=== PATIENT | male | born 1950 | race Caucasian/White ===

== ENCOUNTER → 2021-05-11 12:27 | Outpatient (CLI) | payer MEDICARE, OTHER, SELFPAY ==
--- NOTE | ~2021-05-11 | XR_ITS ---
EXAMINATION: XR knee LT 2V EXAM DATE: 05/11/2021 12:48 INDICATION: M25.562 - Pain in left knee. TECHNIQUE: Frontal and lateral projections of the left knee. There is no prior study for comparison . FINDINGS: There is mild tricompartmental primary osteoarthritis. Moderate-sized suprapatellar, mild infrapatellar enthesopathy. There may be mild edema in Hoffa's fat pad and anterior to the patellar t endon. Small joint effusion. Prominent tibial tuberosity spine, chronic. There are no acute fractures identified. No radiopaque foreign bodies identified. IMPRESSION: 1. Small joint effusion. 2. Mild anterior edema. 3. Mild degenerative changes. Reviewed, dictated and finalized at location B.
== END ==
PROVIDERS: PCP Family Medicine; Visit Provider Family Medicine
DX: M25.562 Pain in left knee (principal); M25.462 Effusion, left knee; M79.89 Other specified soft tissue disorders
CPT/HCPCS: 73560

== ENCOUNTER 2021-10-14 06:45 | Outpatient (CLI) | payer MEDICARE, OTHER, SELFPAY ==
[2021-10-14 08:03] LABS: Alanine Aminotransferase 18 U/L (4-50); Albumin Level 4.1 g/dL (3.5-5.1); Alkaline Phosphatase 70 U/L (38-126); Anion Gap 8 mmol/L (8-16); Aspartate Amino Transferase 25 U/L (17-59); Bilirubin,Total 0.8 mg/dL (0.2-1.3); Blood Urea Nitrogen 13 mg/dL (9-20); Calcium 8.7 mg/dL (8.4-10.2); Carbon Dioxide 29 mmol/L (22-30); Chloride 100 mmol/L (98-107); Cholesterol 183 mg/dL (0-200); Estimated Glomerular Filt Rate > 60; Glucose 128 mg/dL (65-110); HDL Direct 38 mg/dL; Potassium 3.8 mmol/L (3.4-5.0); Sodium 137 mmol/L (137-145); Triglycerides 135 mg/dL (<150)
[2021-10-14 08:14] LABS: LDL Cholesterol Direct 101 mg/dL
[2021-10-14 12:15] LABS: Hemoglobin A1C 6.1 % (<5.7)
== END 2021-10-14 06:46 | disposition home or self-care (01) ==
LOC: ANHLAB 06:50
PROVIDERS: PCP Family Medicine; Visit Provider Family Medicine
DX: E78.5 Hyperlipidemia, unspecified (principal); I10 Essential (primary) hypertension; R73.01 Impaired fasting glucose
CPT/HCPCS: 36415; 80053; 80061; 83036

== ENCOUNTER 2022-04-27 08:03 | Outpatient (CLI) | payer MEDICARE, OTHER, SELFPAY ==
[2022-04-27 08:48] LABS: Add Urine Microscopic? NO; Appearance Urine Clear (Clear); Bilirubin Urine Negative (Negative); Blood Urine Negative (Negative); Color Urine Yellow (Yellow); Glucose Urine UA Negative (Negative); Ketones Urine Negative (Negative); Leukocyte Esterase Ur Negative LEU/UL (NEGATIVE); Nitrate Urine Negative (Negative); Protein Urine Negative (Negative); Urobilinogen Urine Negative mg/dL (<2.0)
[2022-04-27 08:55] LABS: Alanine Aminotransferase 25 U/L (6-50); Albumin Level 4.5 g/dL (3.5-5.1); Alkaline Phosphatase 75 U/L (38-126); Anion Gap 9 mmol/L (8-16); Aspartate Amino Transferase 26 U/L (17-59); Bilirubin,Total 0.6 mg/dL (0.2-1.3); Blood Urea Nitrogen 12 mg/dL (9-20); Calcium 8.7 mg/dL (8.4-10.2); Carbon Dioxide 29 mmol/L (22-30); Chloride 100 mmol/L (98-107); Cholesterol 186 mg/dL (0-200); Estimated Glomerular Filt Rate > 60; Glucose 140 mg/dL (65-110); HDL Direct 42 mg/dL; Potassium 3.6 mmol/L (3.4-5.0); Sodium 138 mmol/L (137-145); Triglycerides 158 mg/dL (<150)
[2022-04-27 09:01] LABS: Basophils Percent Auto 0.3 % (0.2-1.2); Eosinophils Absolute Auto 0.3 K/mm3 (0-0.3); Eosinophils Percent Auto 5.1 % (0-4.4); Hematocrit 43.8 % (42.0-52.0); Hemoglobin 14.8 g/dL (14.0-18.0); Immature Granulocyte Absolute 0.02 K/mm3 (0.00-0.031); Immature Granulocyte Percent A 0.3 % (0-0.5); Lymphocytes Absolute Auto 1.95 K/mm3 (0.9-3.2); Mean Corpuscular HGB Conc 33.8 g/dl (32-36); Mean Corpuscular Hemoglobin 30.8 pg (26-34); Mean Corpuscular Volume 91.3 fl (80-100); Mean Platelet Volume 10.6 fl (7.4-10.4); Monocytes Absolute Auto 0.6 K/mm3 (0.1-0.6); Monocytes Percent Auto 8.9 % (2.6-8.5); Neutrophils Absolute Auto 3.8 K/mm3 (1.3-6.7); Neutrophils Percent Auto 56.4 % (45.5-73.1); Platelet Count Result 282 k/mm3 (150-375); Red Cell Distribution Width 12.9 % (11.5-14.5); White Blood Count 6.7 K/mm3 (4.5-10.0)
[2022-04-27 09:06] LABS: LDL Cholesterol Direct 108 mg/dL
[2022-04-27 09:22] LABS: Hemoglobin A1C 6.7 % (<5.7)
[2022-04-27 09:25] LABS: Prostate Specific Antigen 0.9 ng/mL (< OR = 4.0)
== END 2022-04-27 08:04 | disposition home or self-care (01) ==
LOC: ANHLAB 08:05
PROVIDERS: PCP Family Medicine; Visit Provider Nurse Practitioner Family
DX: Z12.5 Encounter for screening for malignant neoplasm of prostate (principal); I48.91 Unspecified atrial fibrillation; Z00.00 Encounter for general adult medical examination without abnormal findings; I10 Essential (primary) hypertension; E78.5 Hyperlipidemia, unspecified; R73.01 Impaired fasting glucose; E78.00 Pure hypercholesterolemia, unspecified
CPT/HCPCS: 36415; 80053; 80061; 81003; 83036; 84153; 84443; 85025; G0103

== ENCOUNTER 2022-10-27 06:44 | Outpatient (CLI) | payer MEDICARE, OTHER, SELFPAY ==
[2022-10-27 07:54] LABS: Alanine Aminotransferase 21 U/L (6-50); Albumin Level 4.5 g/dL (3.5-5.1); Alkaline Phosphatase 71 U/L (38-126); Anion Gap 6 mmol/L (8-16); Aspartate Amino Transferase 24 U/L (17-59); Bilirubin,Total 0.9 mg/dL (0.2-1.3); Blood Urea Nitrogen 13 mg/dL (9-20); Calcium 8.7 mg/dL (8.4-10.2); Carbon Dioxide 29 mmol/L (22-30); Chloride 102 mmol/L (98-107); Estimated Glomerular Filt Rate > 60; Glucose 139 mg/dL (65-110); Potassium 3.7 mmol/L (3.4-5.0); Sodium 137 mmol/L (137-145)
[2022-10-27 08:14] LABS: Hemoglobin A1C 6.4 % (<5.7)
== END 2022-10-27 06:45 | disposition home or self-care (01) ==
PROVIDERS: PCP Family Medicine; Visit Provider Family Medicine
DX: E11.9 Type 2 diabetes mellitus without complications (principal)
CPT/HCPCS: 36415; 80053; 83036

== ENCOUNTER 2023-05-04 06:46 | Outpatient (CLI) | payer MEDICARE, OTHER, SELFPAY ==
[2023-05-04 07:48] LABS: Hematocrit 46.9 % (42.0-52.0); Hemoglobin 15.7 g/dL (14.0-18.0); Mean Corpuscular HGB Conc 33.5 g/dl (32-36); Mean Corpuscular Hemoglobin 30.5 pg (26-34); Mean Corpuscular Volume 91.2 fl (80-100); Mean Platelet Volume 10.5 fl (7.4-10.4); Platelet Count Result 296 k/mm3 (150-375); Red Blood Count 5.14 M/mm3 (4.6-6.20); Red Cell Distribution Width 12.9 % (11.5-14.5); White Blood Count 8.1 K/mm3 (4.5-10.0)
[2023-05-04 07:50] LABS: Appearance Urine Clear (Clear); Bilirubin Urine Negative (Negative); Blood Urine Negative (Negative); Color Urine Yellow (Yellow); Glucose Urine UA Negative (Negative); Ketones Urine Negative (Negative); Leukocyte Esterase Ur Negative LEU/UL (NEGATIVE); Nitrate Urine Negative (Negative); Protein Urine Negative (Negative); Specific Grav Ur 1.012 (1.001-1.035); Urobilinogen Urine 0.2 mg/dL (<2.0)
[2023-05-04 07:59] LABS: Alanine Aminotransferase 25 U/L (6-50); Albumin Level 4.4 g/dL (3.5-5.1); Alkaline Phosphatase 60 U/L (38-126); Anion Gap 8 mmol/L (8-16); Aspartate Amino Transferase 25 U/L (17-59); Bilirubin,Total 0.9 mg/dL (0.2-1.3); Blood Urea Nitrogen 17 mg/dL (9-20); Calcium 8.9 mg/dL (8.4-10.2); Carbon Dioxide 29 mmol/L (22-30); Chloride 100 mmol/L (98-107); Cholesterol 177 mg/dL (0-200); Estimated Glomerular Filt Rate > 60; Glucose 147 mg/dL (65-110); HDL Direct 45 mg/dL; Potassium 3.7 mmol/L (3.4-5.0); Sodium 137 mmol/L (137-145); Triglycerides 135 mg/dL (<150)
[2023-05-04 08:10] LABS: Add Urine Microscopic? NO; Hemoglobin A1C 6.5 % (<5.7)
[2023-05-04 08:11] LABS: LDL Cholesterol Direct 99 mg/dL
[2023-05-04 08:13] LABS: Creatinine Urine 131.1 mg/dL
[2023-05-04 08:17] LABS: MALB Creatinine Ratio 10.7 mg/g (0-30)
[2023-05-04 08:30] LABS: Prostate Specific Antigen 0.9 ng/mL (< OR = 4.0)
== END 2023-05-04 06:47 | disposition home or self-care (01) ==
PROVIDERS: PCP Family Medicine; Visit Provider Family Medicine
DX: E11.9 Type 2 diabetes mellitus without complications (principal); E78.5 Hyperlipidemia, unspecified; I10 Essential (primary) hypertension; R35.1 Nocturia; I48.91 Unspecified atrial fibrillation; E66.9 Obesity, unspecified; L71.9 Rosacea, unspecified
CPT/HCPCS: 36415; 80053; 80061; 81003; 82043; 83036; 84153; 84443; 85027

== ENCOUNTER 2023-11-21 06:51 | Outpatient (CLI) | payer MEDICARE, OTHER, SELFPAY ==
[2023-11-21 08:00] LABS: Alanine Aminotransferase 18 U/L (6-50); Albumin Level 4.2 g/dL (3.5-5.1); Alkaline Phosphatase 64 U/L (38-126); Anion Gap 6 mmol/L (4-12); Aspartate Amino Transferase 22 U/L (17-59); Bilirubin,Total 0.8 mg/dL (0.2-1.3); Blood Urea Nitrogen 14 mg/dL (9-20); Calcium 8.9 mg/dL (8.4-10.2); Carbon Dioxide 29 mmol/L (22-30); Chloride 102 mmol/L (98-107); Estimated Glomerular Filt Rate > 60; Glucose 143 mg/dL (65-110); Potassium 3.6 mmol/L (3.4-5.0); Sodium 137 mmol/L (137-145)
[2023-11-21 08:52] LABS: Hemoglobin A1C 6.7 % (<5.7)
== END 2023-11-21 06:52 | disposition home or self-care (01) ==
PROVIDERS: PCP Family Medicine; Visit Provider Physician Assistant
DX: E11.9 Type 2 diabetes mellitus without complications (principal); I10 Essential (primary) hypertension
CPT/HCPCS: 36415; 80053; 83036

== ENCOUNTER 2024-01-13 08:19 | Outpatient (CLI) | payer MEDICARE, OTHER, SELFPAY ==
--- NOTE | ~2024-01-13 | XR_ITS ---
EXAMINATION: XR elbow RT min 3V DATE: 01/13/2024 08:41 INDICATION: Right elbow pain TECHNIQUE: Anteroposterior, two oblique and lateral views of the right elbow were obtained. COMPARISON: None. FINDINGS: No acute fracture. Chronic excision of the radial head. There is severe osteoarthritis at the ulnotro chlear articulation. There are also irregular cortical margins at the radial and humeral sides of the radiocapitellar pseudoarticulation. Likely reactive small right joint effusion with displacement of the anterior but not the posterior fat pad. Soft tissues are otherwise unremarkable. IMPRESSION: 1. 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 2. Likely reactive small right elbow joint effusion. No acute osseous abnormality. Reviewed, dictated and finalized at location B. IMPRESSION: 1. 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 2. Likely reactive small right elbow joint effusion. No acute osseous abnormali ty.
== END 2024-01-13 08:20 ==
PROVIDERS: PCP Family Medicine; Visit Provider Family Medicine
DX: M25.521 Pain in right elbow (principal); M19.021 Primary osteoarthritis, right elbow; M25.421 Effusion, right elbow
CPT/HCPCS: 73080

== ENCOUNTER 2024-05-14 07:03 | Outpatient (CLI) | payer MEDICARE, OTHER, SELFPAY ==
[2024-05-14 07:48] LABS: Alanine Aminotransferase 20 U/L (6-50); Albumin Level 4.2 g/dL (3.5-5.1); Alkaline Phosphatase 69 U/L (38-126); Anion Gap 9 mmol/L (4-12); Aspartate Amino Transferase 20 U/L (17-59); Bilirubin,Total 0.7 mg/dL (0.2-1.3); Blood Urea Nitrogen 13 mg/dL (9-20); Calcium 8.6 mg/dL (8.4-10.2); Carbon Dioxide 28 mmol/L (22-30); Chloride 101 mmol/L (98-107); Cholesterol 159 mg/dL (0-200); Estimated Glomerular Filt Rate > 60; Glucose 156 mg/dL (65-110); HDL Direct 42 mg/dL; Potassium 3.6 mmol/L (3.4-5.0); Sodium 138 mmol/L (137-145); Triglycerides 106 mg/dL (<150)
[2024-05-14 07:55] LABS: Add Urine Microscopic? NO; Appearance Urine Clear (Clear); Bilirubin Urine Negative (Negative); Blood Urine Negative (Negative); Color Urine Yellow (Yellow); Glucose Urine UA Negative (Negative); Ketones Urine Negative (Negative); Leukocyte Esterase Ur Negative LEU/UL (Negative); Nitrate Urine Negative (Negative); Protein Urine Negative (Negative); Specific Grav Ur 1.013 (1.001-1.035); Urobilinogen Urine 0.2 mg/dL (<2.0)
[2024-05-14 07:59] LABS: LDL Cholesterol Direct 83 mg/dL
[2024-05-14 08:09] LABS: Hematocrit 45.1 % (42.0-52.0); Hemoglobin 15.4 g/dL (14.0-18.0); Mean Corpuscular HGB Conc 34.1 g/dl (32-36); Mean Corpuscular Hemoglobin 30.8 pg (26-34); Mean Corpuscular Volume 90.2 fl (80-100); Mean Platelet Volume 10.6 fl (7.4-10.4); Platelet Count Result 242 k/mm3 (150-375); Red Cell Distribution Width 12.7 % (11.5-14.5); White Blood Count 6.3 K/mm3 (4.5-10.0)
[2024-05-14 09:23] LABS: Creatinine Urine 118.3 mg/dL
[2024-05-14 09:28] LABS: MALB Creatinine Ratio 8.6 mg/g (0-30); Microalbumin Urine Random 10.2 mg/L (0-16.7)
== END 2024-05-14 07:04 | disposition home or self-care (01) ==
PROVIDERS: PCP Family Medicine; Visit Provider Family Medicine
DX: E78.5 Hyperlipidemia, unspecified (principal); E11.9 Type 2 diabetes mellitus without complications; L71.9 Rosacea, unspecified; I10 Essential (primary) hypertension; R35.1 Nocturia; N40.1 Benign prostatic hyperplasia with lower urinary tract symptoms; N13.8 Other obstructive and reflux uropathy; E66.9 Obesity, unspecified
CPT/HCPCS: 36415; 80053; 80061; 81003; 82043; 83036; 84153; 84443; 85027

== ENCOUNTER → 2024-05-17 13:49 | Outpatient (REF) | payer MEDICARE, OTHER, SELFPAY | LOC: ANHLAB 13:49 | PROVIDERS: PCP Family Medicine; Visit Provider Plastic Surgery | DX: C44.319 Basal cell carcinoma of skin of other parts of face (principal) | CPT/HCPCS: 88305 ==

== ENCOUNTER 2024-08-15 14:30 | Outpatient (RCR) | payer MEDICARE, OTHER, SELFPAY ==
[2024-06-19 13:20] VITALS: BMI 29.5
== END 2024-09-03 13:26 | disposition home or self-care (01) ==
LOC: ANHDMC 14:30
PROVIDERS: PCP Family Medicine; Visit Provider Family Medicine
DX: E11.65 Type 2 diabetes mellitus with hyperglycemia (principal); Z71.3 Dietary counseling and surveillance
CPT/HCPCS: 97802; G0108; G0109

== ENCOUNTER 2024-11-12 06:43 | Outpatient (CLI) | payer MEDICARE, OTHER, SELFPAY ==
--- OUTSIDE RECORDS SUMMARY | 2024-11-12 06:46 | XMS_ITS | Clinical Summary ---
Author Organization [facility] Address [address] [place] [id number] Care Team Providers Care Senior It Architect Name Role Phone Unavailable Primary Care Provider Unavailabl e Social History Tobacco Use Types Packs/Day Years Used Date Smoking Tobacco: Never Assessed Sex and Gender Information Value Date Recorded Sex Assigned at Not on file Legal Sex Male 5:10 PM CDT Gender Identity Not on file Sexual Orientation Not on file Last Filed Vital Signs Vital Sign Reading Time Taken Comments Blood Pressure 124/72 02/01/2017 8:38 AM CDT Pulse - - Temperature - - Respiratory Rate - - Oxygen Saturation - - Inhaled Oxygen Concentration - - Weight 99.3 kg (219 lb) 02/01/2017 8:38 AM CDT Height 182.9 cm (6') 02/01/2017 8:38 AM CDT Body Mass Index 29.7 02/01/2017 8:38 AM CDT Plan of Treatment Health Maintenance Due Date Last Done Comments Colorectal Cancer Screening Colonoscopy (10 Years) 1949 Hepatitis C 1967 DTaP, Tdap and Td Vaccines ( 1 - Tdap) 1968 Pneumococcal Vaccine: 50+ Ye ars (1 of 1 - PCV) 1999 Zoster Vaccines (1 of 2) 1999 COVID-19 Vaccine ( - 2023-2 5 season) 2024 RSV Immunization or 60+ Years (1 - 1-dose 75+ series) 2024 Meningococcal B Vaccine Aged Out No l onger eligible based on patient's age to complete this topic Meningococcal Vaccine Aged Out No minh deandre eligible based on patient's age to complete this topic RSV Immunizations Under 20 Months Aged Out No longer eligible based on patient's age to complete this topic
--- OUTSIDE RECORDS SUMMARY | 2024-11-12 06:46 | XMS_ITS | Clinical Summary ---
Author Organization [facility] Address [address] [place] [id number] Care Team Providers Care Ampoule Filler And Sealer Name Role Phone Patrice Naidu MD Primary Care Provider Allergies Active Allergy Reactions Criticality Noted Date Comments Diltiazem Other (See comments) Low 05/07/2019 Sensitivity - lowers BP too much. Losartan Angioedema High 11/09/2021 Tounge swelling Penicillins Unknown 09/28/2018 Medications finasteride (PROSCAR) 5 mg tablet Take 1 tablet (5 mg total) by mouth daily 9 Active pravastatin (PRAVACHOL) 20 mg tablet Take 1 tablet (20 mg total) by mouth daily 9 Active multivit-min/FA/ lycopen/lutein (CENTRUM SILVER MEN ORAL) Take by mouth Active desoximetasone 0.25 % spray,non-aeroso l Apply topically Active pimecrolimus (ELIDEL) 1 % cream Apply topically 2 (two) times a day Active indomethacin (INDOCIN) 50 mg capsule Take 1 capsule (50 mg total) by mouth 2 (two) times a day with meals prn Active amLODIPine (NORVASC) 5 mg tablet Take 1 tablet (5 mg total) by mouth daily 30 tablet [address] (PROTONIX) 40 mg EC tablet 4 Active Xarelto 20 mg tabletIndication s:atrial fibrillation Take 1 tablet (20 mg total) by mouth daily 90 tablet 3 5 Active metoprolol tartrate (LOPRESSOR) 25 mg immediate release tablet Take 0.5 tablets (12.5 mg total) by mouth 2 (two) times a day 90 tablet 3 5 Active metoprolol tartrate (LOPRESSOR) 25 mg immediate release tablet Take 0.5 tablets (12.5 mg total) by mouth 2 (two) times a day 90 tablet 5 10/16/19 25 Discontin ued(Reord er) Active Problems Problem Noted Date Diagnosed Date Essential hypertension 09/28/2018 Dyslipidemia 09/28/2018 Paroxysmal atrial fibrillation 09/28/2018 BPH (benign prostatic hyperplasia) 09/28/2018 Diastolic dysfunction without heart failure 09/15 Surgical History Surgery Date Site/Laterality Comments BASAL CELL CARCINOMA EXCISION LIPOMA RESECTION Medical History Medical History Date Comments Hypertension Hyperlipidemia Cancer (HCC) Gout Family History Medical History Relation Name Comments Heart attack Father Naresh Mejia Heart disease Mother Sandy Mejia Hypertension Mother Sandy Mejia Relation Name Status Comments Father Naresh Mejia (Age 89) Mother Sandy Mejia (Age 89) Social History Tobacco Use Types Packs/Day Years Used Date Smoking Tobacco: Never Smokeless Tobacco: Never Tobacco Cessation:Counseling Given: Not Answered Alcohol Use Standard Drinks/Week Comments Not Currently 0 (1 standard drink = 0.6 oz pur e alcohol) Sex and Gender Information Value Date Recorded Sex Assigned at Not on file Legal Sex Male 9:13 AM CHEMIST WATER PURIFICATION Gender Identity Not on file Sexual Orientation Not on file Obstetrics History Last Filed Vital Signs Vital Sign Reading Time Taken Comments Blood Pressure 110/72 05/21/2024 7:52 AM CHEMIST WATER PURIFICATION Pulse 71 05/21/2024 7:52 AM CHEMIST WATER PURIFICATION Temperature - - Respiratory Rate 18 05/05/2020 8:01 AM CDT Oxygen Saturation 96% 05/21/2024 7:52 AM CHEMIST WATER PURIFICATION Inhaled Oxygen Concentration - - Weight 99.9 kg (220 lb 4.8 oz) 05/21/2024 7:52 A M CHEMIST WATER PURIFICATION Height 182.9 cm (6') 05/21/2024 7:52 AM CHEMIST WATER PURIFICATION Body Mass Index 29.88 05/21/2024 7:52 AM CHEMIST WATER PURIFICATION Plan of Treatment Health Maintenance Due Date Last Done Comments Colon Cancer Screening-Colonoscopy 1949 Depression Screening 1949 Fall Risk Assessment 1949 Hepatitis C Screening 1949 Hepatitis B Screening 1967 Pneumococcal vaccine 65+ (1 of 1 - PCV) 1999 Zoster Vaccine (1 of 2) 1999 DTaP/Tdap/Td Vaccine (1 - Tdap) 03/05/2009 9 Well Visit 65+ 2014 Influenza Vaccine (#1) 2024 Insurance MEDICARE [employer] MEDICARE FOR LIFE Care Teams Ampoule Filler And Sealer Relationship Specialty Start Date End Date Patrice Naidu MD [address] [facility] [address] [place] [address] PCP - General Family Medicine 09/19/18
--- OUTSIDE RECORDS SUMMARY | 2024-11-12 06:46 | XMS_ITS | Referral Summary ---
Author Organization [facility] Address [address] [place] [id number] Care Team Providers Care Medical Imaging Tech Name Role Phone Patrice Naidu MD Primary [...] 09/28/2018 Diastolic dysfunction without heart failure 09/15 Social History Tobacco Use Types Packs/Day Years Used Date Smoking Tobacco: Never Smokeless Tobacco: Never Tobacco Cessation:Counseling Given: Not Answered Alcohol Use Standard Drinks/Week Comments Not Currently 0 (1 standard drink = 0.6 oz pur e alcohol) Sex and Gender Information Value Date Recorded Sex Assigned at Not on file Legal Sex Male 9:13 AM DOG LICENSE OFFICER SUPERVISOR Gender Identity Not on file Sexual Orientation Not on file Last Filed Vital Signs Vital Sign Reading Time Taken Comments Blood Pressure 110/72 05/21/2024 7:52 AM DOG LICENSE OFFICER SUPERVISOR Pulse 71 05/21/2024 7:52 AM DOG LICENSE OFFICER SUPERVISOR Temperature - - Respiratory Rate 18 05/05/2020 8:01 AM CDT Oxygen Saturation 96% 05/21/2024 7:52 AM DOG LICENSE OFFICER SUPERVISOR Inhaled Oxygen Concentration - - Weight 99.9 kg (220 lb 4.8 oz) 05/21/2024 7:52 A M DOG LICENSE OFFICER SUPERVISOR Height 182.9 cm (6') 05/21/2024 7:52 AM DOG LICENSE OFFICER SUPERVISOR Body Mass Index 29.88 05/21/2024 7:52 AM DOG LICENSE OFFICER SUPERVISOR Plan of Treatment Not on file Insurance [place] [address] MEDICARE FOR LIFE Care Teams Medical Imaging Tech Relationship Specialty Start Date End Date Patrice Naidu MD [address] [facility] [address] [place] [address] PCP - General Family Medicine 09/19/18
--- OUTSIDE RECORDS SUMMARY | 2024-11-12 06:46 | XMS_ITS | Continuity of Care Document ---
Author Name [facility] Organization [facility] Care Team Providers Care Nail Making Machine Setter Name Role Phone [facility] Unavailable Unavailable Problems Combined list of problems from Department of Defense and Veterans Affairs facilities. It does not include entries that were removed or entered in error. 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 Medication Details Route Status Patient Instructions Prescription Expires Prescription Number Last Dispense Date Ordering Provider Order Date Order Qty Source amLODIPine 5 mg tablet See Instruct ions, Oral, Daily, # 90 EA, 2 total refill(s ), Hard Stop Oral (given by mouth) Discont inued 04/16/2024 4 2023 90.0 Ambulat ory Pharmac y amLODIPine 5 mg tablet See Instruct ions, # 90 EA, 2 total refill(s ), Acute Complet ed 10/24/2023 3 2023 90.0 Ambulat ory Pharmac y amLODIPine 5 mg tablet See Instruct ions, # 90 EA, 2 total refill(s ), Hard Stop Ordered 04/16/2025 5 2024 90.0 Ambulat ory Pharmac y finasteride 5 mg tablet See dose instruct ions in comments , # 90 EA, 1 total refill(s ), Acute Complet ed 05/16/2023 3 2022 90.0 Ambulat ory Pharmac y finasteride 5 mg tablet 5 mg, Oral, Daily, # 90 EA, 3 total refill(s ), Hard Stop Oral (given by mouth) Discont inued 05/04/2024 4 2023 90.0 Ambulat ory Pharmac y finasteride 5 mg tablet 5 mg, Oral, Daily, # 90 EA, 3 total refill(s ), Hard Stop Oral (given by mouth) Ordered 05/03/2025 5 2024 90.0 Ambulat ory Pharmac y metoprolol tartrate 25 mg tablet See Instruct ions, # 90 EA, 0 total refill(s ), Hard Stop Complet ed 06/08/2024 4 2023 90.0 Ambulat ory Pharmac y metoprolol tartrate 25 mg tablet See Instruct ions, # 90 EA, 2 total refill(s ), Hard Stop Discont inued 04/23/2024 4 2023 90.0 Ambulat ory Pharmac y metoprolol tartrate 25 mg tablet See Instruct ions, # 90 EA, 2 total refill(s ), Acute Complet ed 09/30/2023 3 2023 90.0 Ambulat ory Pharmac y metoprolol tartrate 25 mg tablet See Instruct ions, # 90 EA, 0 total refill(s ), Hard Stop Complet ed 07/29/2024 5 2024 90.0 Ambulat ory Pharmac y metoprolol tartrate 25 mg tablet See Instruct ions, Oral, # 90 EA, 3 total refill(s ), Soft Stop Oral (given by mouth) Ordered 5 2024 90.0 Ambulat ory Pharmac y pantoprazol e EC 40 mg tablet 40 mg, Oral, every morning, # 90 EA, 1 total refill(s ), Hard Stop Oral (given by mouth) Ordered 11/28/2024 4 2023 90.0 Ambulat ory Pharmac y pravastatin 20 mg tablet See Instruct ions, # 90 EA, 1 total refill(s ), Acute Complet ed 05/16/2023 3 2022 90.0 Ambulat ory Pharmac y pravastatin 20 mg tablet 20 mg, Oral, Daily, # 90 EA, 3 total refill(s ), Hard Stop Oral (given by mouth) Discont inued 05/04/2024 4 2023 90.0 Ambulat ory Pharmac y pravastatin 20 mg tablet 20 mg, Oral, Daily, # 90 EA, 3 total refill(s ), Hard Stop Oral (given by mouth) Ordered 05/03/2025 5 2024 90.0 Ambulat ory Pharmac y RIVAROXABAN 20 MG ORAL TAB Take or use exactly as directed .Obtain advice for OTCs.Sanam ck with your doctor before becoming .Take with food. 09/08/2024 [id number] [address] [place] [address] Deon REYES ([facility] [place] tamsulosin 0.4 mg capsule 0.4 mg, Oral, every day at bedtime, # 90 EA, 2 total refill(s ), Hard Stop Oral (given by mouth) Complet ed 05/16/2024 3 2023 90.0 Ambulat ory Pharmac y Xarelto 20 mg tablet See Instruct ions, # 90 EA, 3 total refill(s ), Hard Stop, NARA Discont inued 08/30/2024 4 2024 90.0 Ambulat ory Pharmac y Xarelto 20 mg tablet See dose instruct ions in comments , # 90 EA, 2 total refill(s ), Acute Complet ed 12/13/2023 3 2023 90.0 Ambulat ory Pharmac y Xarelto 20 mg tablet 20 mg, Oral, Daily, # 90 EA, 3 total refill(s ), Hard Stop, NARA Oral (given by mouth) Ordered 08/28/2025 5 2024 90.0 Ambulat ory Pharmac y Allergies, Adverse Reactions, Alerts Combined list of allergies from Department of Defense and Veterans Affairs facilities. It does not include entries that were removed or entered in error. Substance Category Reaction Severity Reaction type Status Date Reported Comments Source PENICILLINS Drug allergy (disorder) Unknown active [address] [place] [address] Deon REYES ([facility] [place]) penicillins Propensity to adverse reactions to drug Unknown Active PER PATIENT MAY 27 Unknown Organizati on Immunizations Combined list of available immunizations from the Department of Defense and Veterans Affairs facilities. Immunization Series Date Given Administered By Site Reaction Lot Number CVX Code Drug Cement Handler Status Comments Source COVID-19, mRNA, LNP-S, PF, 100 mcg or 50 mcg dose 2020 ALUL, () Not Given COVID-19, mRNA, LNP-S, PF, 100 mcg or 50 mcg dose DoD Encounters Combined list of: 1) Encounters from Department of Veterans Affairs facilities going backup to the last 18 months, not all VA inpatient encounters are included; 2) Encounters from the Department of [facility] facilities going backup to 280 months. Location Location Details Encounter Type Encounter Number Reason For Visit Attending Provider ADM Date DC Date Status Disposition Source [address] [place] [address] [employer] ([facility] [place]Opt ometry) OUTPATIENT [id number] Pas entered the order MELANY CROSS 11/17 Released w/o Limitations [address] [place] [address] [employer] ([facility] [place]O ptometr y) [address] [place] [address] [employer] ([facility] [place]Opt ometry) OUTPATIENT [id number] patient would like full exam MELANY CROSS 11/21 Released w/o Limitations [address] [place] [address] [employer] ([facility] [place]O ptometr y) Procedures Combined list of: 1) Procedures from Department of Veterans Affairs facilities going back up to thelast 18 months, not all CT non-surgical procedures are included; 2) All procedures from the Department of [facility] facilities. Procedure Procedure Type Code Date Perfomer Comments Sourc e No data available for this section Ambulato ry Pharmacy Determination Of Refractive State Determination Of Refractive State [id number] MELANY CROSS [facility] Ophthalmological Prior Patient Start Comprehensive Care Ophthalmological Prior Patient Start Comprehensive Care [id number] MELANY CROSS [facility] Fitting Bifocals (Not For Aphakia) [facility] Fitting Bifocals (Not For Aphakia) [id number] MELANY CROSS Determination Of Refractive State Determination Of Refractive State [id number] MELANY CROSS Ophthalmological New Patient Start Comprehensive Care Ophthalmological New Patient Start Comprehensive Care [id number] MELANY CROSS DETERMINATION OF REFRACTIVE STATE [facility] FITTING OF SPECTACLES, EXCEPT FOR APHAKIA; BIFOCAL 05/03/2 012 DoD Social History Combined list of available smoking, tobacco, and other social history from Department of Defense and Veterans Affairs facilities. Social History Type Response Date Comment Sourc e This section is an empty social history section. DoD Assessment and Plan Combined list of future care activities from Department of Defense and Veterans Affairs facilities (e.g., assessment and plan notes, appointments, orders, and referrals). Additional future care activities may be listed in the Plan of Care section. Result Assessment and Plan Date Source Assessment and Plan No data available for this section 11/12/2024 Ambulatory Pharmacy Functional Status Combined list of recent functional and cognitive assessments recorded at Department of Defense and Veterans Affairs ([place]).VA Functional [place] Measurement (FIM) Scale: 1 = Total Assistance (Subject = 0% +), 2 = Maximal Assistance (Subject = 25% +), 3 = Moderate Assistance (Subject = 50% +), 4 = Minimal Assistance (Subject = 75% +), 5 = Supervision, 6 = Modified [place] (Device), 7 = Complete [place] (Timely, Safely). Assessment Date/Time Source Assessment Type Assessment Skill Assessment Score Assessment Details No data available for this section
[2024-11-12 08:17] LABS: Hemoglobin A1C 6.2 % (<5.7)
[2024-11-12 08:19] LABS: Alanine Aminotransferase 18 U/L (6-50); Albumin Level 4.2 g/dL (3.5-5.1); Alkaline Phosphatase 68 U/L (38-126); Anion Gap 7 mmol/L (4-12); Aspartate Amino Transferase 25 U/L (17-59); Bilirubin,Total 1.1 mg/dL (0.2-1.3); Blood Urea Nitrogen 17 mg/dL (9-20); Calcium 8.8 mg/dL (8.4-10.2); Carbon Dioxide 30 mmol/L (22-30); Chloride 101 mmol/L (98-107); Estimated Glomerular Filt Rate > 60; Glucose 128 mg/dL (65-110); Potassium 3.8 mmol/L (3.4-5.0); Sodium 138 mmol/L (137-145)
== END 2024-11-12 06:44 | disposition home or self-care (01) ==
LOC: ANHLAB 06:44
PROVIDERS: PCP Family Medicine; Visit Provider Family Medicine
DX: E11.9 Type 2 diabetes mellitus without complications (principal)
CPT/HCPCS: 36415; 80053; 83036

== ENCOUNTER 2024-11-29 13:43 | Outpatient (RCR) | payer MEDICARE, OTHER, SELFPAY | END 2025-02-18 10:13 | disposition home or self-care (01) | LOC: ANHDMC 13:43 | PROVIDERS: PCP Family Medicine; Visit Provider Family Medicine | DX: E11.9 Type 2 diabetes mellitus without complications (principal); Z71.89 Other specified counseling | CPT/HCPCS: G0109 ==

== ENCOUNTER 2025-05-21 06:38 | Outpatient (CLI) | payer MEDICARE, OTHER, SELFPAY ==
--- OUTSIDE RECORDS SUMMARY | 2025-05-21 06:41 | XMS_ITS | Clinical Summary ---
Author Organization [facility] Address [address] [place] [phone] Care Team Providers Care Teaching Pastor Name Role Phone Patrice Naidu MD Primary [...] mg total) by mouth daily 9 Active multivit-min/FA/l ycopen/lutein (CENTRUM SILVER MEN ORAL) Take by mouth Active desoximetasone 0.25 % spray,non-aerosol Apply topically Active pimecrolimus (ELIDEL) 1 % cream Apply topically 2 (two) times a day Active indomethacin (INDOCIN) 50 mg capsule Take 1 capsule (50 mg total) by mouth 2 (two) times a day with meals prn Active pantoprazole DR (PROTONIX) 40 mg EC tablet 4 Active Xarelto 20 mg tabletIndications :atrial fibrillation Take 1 tablet (20 mg total) by mouth daily 90 tablet 3 5 Active metoprolol tartrate (LOPRESSOR) 25 mg immediate release tablet Take 0.5 tablets (12.5 mg total) by mouth 2 (two) times a day 90 tablet 2 5 Active amLODIPine (NORVASC) 5 mg tablet Take 1 tablet (5 mg total) by mouth daily 90 tablet 3 5 01/05/20 26 Active Active Problems Problem Noted Date Diagnosed Date [...] on file Legal Sex Male 9:13 AM DIRECTOR OF RADIO SERVICES Gender Identity Not on file Sexual Orientation Not on file Last Filed Vital Signs Vital Sign Reading Time Taken Comments Blood Pressure 110/72 05/21/2024 7:52 AM DIRECTOR OF RADIO SERVICES Pulse 71 05/21/2024 7:52 AM DIRECTOR OF RADIO SERVICES Temperature - - Respiratory Rate 18 05/05/2020 8:01 AM CDT Oxygen Saturation 96% 05/21/2024 7:52 AM DIRECTOR OF RADIO SERVICES Inhaled Oxygen Concentration - - Weight 99.9 kg (220 lb 4.8 oz) 05/21/2024 7:52 A M DIRECTOR OF RADIO SERVICES Height 182.9 cm (6') 05/21/2024 7:52 AM DIRECTOR OF RADIO SERVICES Body Mass Index 29.88 05/21/2024 7:52 AM DIRECTOR OF RADIO SERVICES Plan of Treatment Health Maintenance Due Date Last Done Comments Depression Screening 1950 Fall Risk Assessment 1950 Hepatitis C Screening 1949 Hepatitis B Screening 1967 Pneumococcal vaccine 65+ (1 of 1 - PCV) 1999 Zoster Vaccine (1 of 2) 1999 DTaP/Tdap/Td Vaccine (1 - Tdap) 03/05/2009 9 Well Visit 65+ 2014 Influenza Vaccine (#1) 2025 Insurance MEDICARE [employer] FOR LIFE MEDICARE FOR LIFE Care Teams Teaching Pastor Relationship Specialty Start Date End Date Patrice Naidu MD [address] [facility] [address] [place] [address] PCP - General Family Medicine 09/19/18
[2025-05-21 08:21] LABS: Hematocrit 45.0 % (42.0-52.0); Hemoglobin 14.9 g/dL (14.0-18.0); Mean Corpuscular HGB Conc 33.1 g/dl (32-36); Mean Corpuscular Hemoglobin 30.7 pg (26-34); Mean Corpuscular Volume 92.6 fl (80-100); Platelet Count Result 233 k/mm3 (150-375); Red Blood Count 4.86 M/mm3 (4.6-6.20); White Blood Count 5.9 K/mm3 (4.5-10.0)
[2025-05-21 08:30] LABS: Add Urine Microscopic? NO; Appearance Urine Clear (Clear); Glucose Urine UA Negative (Negative); Leukocyte Esterase Ur Negative LEU/UL (Negative); Nitrate Urine Negative (Negative); Specific Grav Ur 1.010 (1.001-1.035)
[2025-05-21 08:51] LABS: Alanine Aminotransferase 15 U/L (6-50); Albumin Level 4.3 g/dL (3.5-5.1); Alkaline Phosphatase 60 U/L (38-126); Anion Gap 8 mmol/L (4-12); Aspartate Amino Transferase 33 U/L (17-59); Bilirubin,Total 0.9 mg/dL (0.2-1.3); Blood Urea Nitrogen 16 mg/dL (9-20); Calcium 8.7 mg/dL (8.4-10.2); Carbon Dioxide 29 mmol/L (22-30); Chloride 100 mmol/L (98-107); Cholesterol 147 mg/dL (0-200); Estimated Glomerular Filt Rate > 60; Glucose 120 mg/dL (65-110); HDL Direct 46 mg/dL; Potassium 3.7 mmol/L (3.4-5.0); Sodium 137 mmol/L (137-145); Total Protein 7.2 g/dL (6.3-8.2); Triglycerides 80 mg/dL (<150)
[2025-05-21 09:29] LABS: Prostate Specific Antigen 0.9 ng/mL (< OR = 4.0); Thyroid Stimulating Hormone 2.290 uIU/mL (0.465-4.680)
[2025-05-21 10:07] LABS: MALB Creatinine Ratio 8.3 mg/g (0-30)
[2025-05-21 10:23] LABS: Hemoglobin A1C 5.9 % (<5.7)
== END 2025-05-21 06:39 | disposition home or self-care (01) ==
PROVIDERS: PCP Family Medicine; Visit Provider Family Medicine
DX: E78.5 Hyperlipidemia, unspecified (principal); I10 Essential (primary) hypertension; E11.9 Type 2 diabetes mellitus without complications; R35.1 Nocturia
CPT/HCPCS: 36415; 80053; 80061; 81003; 82043; 83036; 84153; 84443; 85027